=== PATIENT | female | born 1950 | race Caucasian/White ===

== ENCOUNTER → 2016-08-07 | Outpatient (CLI) | payer MEDICARE, OTHER | LOC: WI 13:03 | PROVIDERS: ATTEND Surgery | DX: Z12.31 Encounter for screening mammogram for malignant neoplasm of breast (principal); N63 Unspecified lump in breast | CPT/HCPCS: 77067; G0202 ==

== ENCOUNTER → 2018-03-05 | Outpatient (CLI) | payer MEDICARE, OTHER ==
--- NOTE | 2018-03-05 11:25 | WOMENS IMAGING REPORT ---
EXAM DESCRIPTION: 3D SCREENING MAMMO BILAT COMPLETED DATE/TIME: 03/05/2018 11:00 am REASON FOR STUDY: ROUTINE BILATERAL SCREENING;Z12.31 Z12.31 ENCNTR SCREEN MAMMOGRAM FOR MALIGNANT N EOPLASM OF SCAR COMPARISON: Mammograms 2015, 2016 TECHNIQUE: Standard craniocaudal and mediolateral oblique views of each breast recorded using digita l acquisition and breast tomosynthesis. LIMITATIONS: None. FINDINGS: No masses, calcifications or architectural distortion. No areas of suspicion. Read with the assistance of CAD. .[facility] - R2 Cenova Version 1.3 .[facility] - R2 Cenova Version 1.3 .[facility] - R2 Cenova Version 2.[address] - R2 Cenova Version 2.4 .[facility] - R2 [employer] Version 9.2 IMPRESSION: NORMAL MAMMOGRAM. BIRADS 1. BREAST DENSITY: b. There are scattered areas of fibroglandular density. BIRAD: 1 NEGATIVE RECOMMENDATION: ROUTINE SCREENING Please continue yearly bilateral screening tomosynthesis in February 2019 COMMENT: The patient has been notified of the results by letter per SA requirements. Additional no tification policies are in place for contacting patient with suspicious or incomplete findings. Quality ID #[id number]: The [employer] recommends an annual screening mammogram for women aged 40 years or over. This facility utilizes a reminder system to ensure that all patients receive reminder letters, and/or direct phone calls for appointments. This includes reminders for routine scr eening mammograms, diagnostic mammograms, or other Breast Imaging Interventions when appropriate. Th is patient will be placed in the appropriate reminder system. The [employer] (ACR) has developed recommendations for screening MRI of the breast s in certain patient populations, to be used in conjunction with mammography. Breast MRI surveillanc e may be appropriate for women with more than 20% lifetime risk of developing breast cancer as deter mined by genetic testing, significant family history of the disease, or history of mantle radiation f or Hodgkins Disease. ACR Practice Guidelines 2008. DBT Technology DBT is a type of tomographic mammography. With conventional mammography, overlapping breast tissue ma y make lesions difficult to detect, even with good compression. DBT uses an x-ray tube that rotates a round the breast, taking images at different angles. These images are then combined to create thin sl ices of the breast that the radiologist can view as a 3D reconstruction. The 5k Fans unit can perform full-field digital mammograms (2D imaging); or DBT (3D imaging); or both, in a combination mode that quickly performs both the mammogram and the tomosynthesis scan while the breast is still compressed. PQRS 6045F: Fluoroscopic imaging is not utilized for breast tomosynthesis. TECHNICAL DOCUMENTATION: FINDING NUMBER: (1) ASSESSMENT: (1) JOB ID: [id number] [employer]- All Rights Reserved Reading location - IP/workstation name: [email or web address]
== END ==
LOC: WI 11:19
PROVIDERS: ATTEND Surgery
DX: Z12.31 Encounter for screening mammogram for malignant neoplasm of breast (principal)
CPT/HCPCS: 77063; 77067

== ENCOUNTER 2020-01-06 17:01 | Emergency (ER) | payer MEDICARE, OTHER ==
--- NOTE | 2020-01-06 18:43 | ER Document Report ---
HPI - HPI Patient complains to provider of: Back pain Time Seen by Provider: 01/06/20 18:37 Pain Level: 1 Context: 69-year-old female past medical history significant for arthritis presents to the emergency room complaining of some mid to low back pain for the past 3 days. Denies any trauma or injury. No nausea, no vomiting. Does complain of some urinary frequency. States has been taking Tylenol with some relief. No previous back issues. Past Medical History - Social History Smoking Status: Never Smoker Frequency of alcohol use: None Family History: Reviewed & Not Pertinent - Past Medical History Cardiac Medical History: Denies: Hx Coronary Artery Disease, Hx Heart Attack, Hx Hypertension Pulmonary Medical History: Denies: Hx Asthma, Hx Bronchitis, Hx COPD, Hx Pneumonia Neurological Medical History: Denies: Hx Cerebrovascular Accident, Hx Seizures Musculoskeletal Medical History: Reports Hx Arthritis - POSSIBLE Past Surgical History: Denies: Hx Hysterectomy - Immunizations Hx Diphtheria, Pertussis, Tetanus Vaccination: Yes Vertical Provider Document - CONSTITUTIONAL Agree With Documented VS: Yes Exam Limitations: No Limitations Notes: VITAL SIGNS: Within normal limits. GENERAL: Mild acute distress, non-toxic appearance. HEAD: Normal with no signs of head trauma. EYES: PERRLA, EOMI, conjunctiva normal, no discharge. EARS: Hearing grossly intact. NOSE: Normal. THROAT: Oropharynx is normal. NECK: Normal range of motion, no tenderness, supple, no lymphadenopathy, No adenopathy, no JVD. CHEST: Clear breath sounds bilaterally. No wheezes, rales, or rhonchi. CARDIAC: Regular rate and rhythm. S1 and S2, without murmurs, gallops, or rubs. VASCULAR: No Edema. Peripheral pulses normal and equal in all extremities. ABDOMEN: Normal and soft with no tenderness, no masses or pulsatile masses. No organomegaly. Positive bowel sounds x4. No CVA tenderness noted bilaterally. GASTROINTESTINAL: Bowel sounds normal GENITOURINARY: Normal, No tenderness LYMPATHTIC: No lymphadenopathy noted. MUSCULOSKELETAL: Good range of motion of all major joints. Extremities without clubbing, cyanosis or edema. Noted to palpation over the thoracic and lumbar spine. No CVA tenderness noted bilaterally. NEUROLOGICAL: Alert and oriented x 3. No focal sensory or strength deficits. Speech normal. Follows commands appropriately. PSYCHIATRIC: Normal Affect, judgement and mood. SKIN: Normal appearance with no rashes or lesions. - INFECTION CONTROL TRAVEL OUTSIDE OF THE [place] IN LAST 30 DAYS: No Course - Re-evaluation Re-evalutation: 01/06/20 19:42 Went to evaluate patient and give her her urine results she informed provider that she has been having some intermittent chest pain patient states that she describes it as pressure has been off and on for the past 3 days. Did not initially tell provider about her chest pain. Cardiac evaluation was ordered. - Vital Signs Vital signs: Temp Pulse Resp BP Pulse Ox 98.6 F 73 14 169/88 H 100 01/06/20 17:06 01/06/20 17:06 01/06/20 17:06 01/06/20 17:06 01/06/20 17:06 Discharge - Discharge Clinical Impression: Urinary frequency Condition: Stable Disposition: HOME, SELF-CARE Referrals: KIRSTEN WRIGHT PA [Primary Care Provider] - Follow up as needed
[2020-01-06 19:12] LABS: APPEARANCE,URINE CLEAR; BILIRUBIN,URINE NEGATIVE (NEGATIVE); COLOR,URINE STRAW; GLUCOSE, URINE NEGATIVE (NEGATIVE); KETONES,URINE NEGATIVE (NEGATIVE); LEUKOCYTE ESTERASE,URINE NEGATIVE (NEGATIVE); NITRITE,URINE NEGATIVE (NEGATIVE); PROTEIN,URINE NEGATIVE (NEGATIVE); URINE SPECIFIC GRAVITY 1.006; UROBILINOGEN,URINE NEGATIVE mg/dL (<2.0)
--- NOTE | 2020-01-06 19:41 | ER Document Report ---
ED Medical Screen (RME) - General Chief Complaint: Low Back Pain Stated Complaint: LOWER BACK PAIN Time Seen by Provider: 01/06/20 18:37 Primary Care Provider: KIRSTEN WRIGHT PA [Primary Care Provider] - Follow up as needed Mode of Arrival: Ambulatory Information source: Patient Notes: HPI; 69-year-old female presents to the emergency room complaining of some mid upper to mid low back pain that started 2 days ago. Complains of some urinary frequency. Initially denied any chest pain, shortness of breath, no difficulty breathing. Is now complaining of some intermittent chest pain for the past 2 days. Describes it as pressure. Took Tylenol with some relief. PE: Alert and oriented x3. Lungs: Clear to auscultation without rales, rhonchi, wheezes.: Regular rate rhythm without murmurs, rubs, gallops. I have greeted and performed a rapid initial assessment of this patient. A comprehensive ED assessment and evaluation of the patient, analysis of test r esults and completion of the medical decision making process will be conducted by additional ED providers. I have specifically instructed the patient or family members with the patient to immediately return to any nursing staff should anything change in the patient's condition or with their chief complaint. Patient was initially seen for possible UTI went to discuss urine results with patient when she asked to be seen for her intermittent chest pain that she did not initially tell me about. Cardiac evaluation has been ordered. TRAVEL OUTSIDE OF THE [place] IN LAST 30 DAYS: No - Related Data Allergies/Adverse Reactions: No Known Allergies Allergy (Verified 10/03/15 07:35) Past Medical History - Past Medical History Cardiac Medical History: Denies: Hx Coronary Artery Disease, Hx Heart Attack, Hx Hypertension Pulmonary Medical History: Denies: Hx Asthma, Hx Bronchitis, Hx COPD, Hx Pneumonia Neurological Medical History: Denies: Hx Cerebrovascular Accident, Hx Seizures Musculoskeltal Medical History: Reports Hx Arthritis - POSSIBLE Past Surgical History: Denies: Hx Hysterectomy - Immunizations Hx Diphtheria, Pertussis, Tetanus Vaccination: Yes Physical Exam - Vital signs Vitals: Temp Pulse Resp BP Pulse Ox 98.6 F 73 14 169/88 H 100 01/06/20 17:06 01/06/20 17:06 01/06/20 17:06 01/06/20 17:06 01/06/20 17:06 Course - Vital Signs Vital signs: Temp Pulse Resp BP Pulse Ox 98.6 F 73 14 169/88 H 100 01/06/20 17:06 01/06/20 17:06 01/06/20 17:06 01/06/20 17:06 01/06/20 17:06 - Laboratory Laboratory results interpreted by me: 01/06/20 18:45 Urine Ascorbic Acid 40 H Doctor's Discharge - Discharge Referrals: KIRSTEN WRIGHT PA [Primary Care Provider] - Follow up as needed
[2020-01-06 19:57] LABS: ABSOLUTE LYMPHOCYTES (AUTO) 2.3 10^3/uL (0.5-4.7); ABSOLUTE MONOCYTES (AUTO) 0.8 10^3/uL (0.1-1.4); ABSOLUTE NEUT (AUTO) 4.8 10^3/uL (1.7-8.2); BASOPHILS % (AUTO) 0.6 % (0-2); EOSINOPHILS % (AUTO) 0.2 % (0-6); HEMATOCRIT 41.9 % (36.0-47.0); HEMOGLOBIN 14.5 g/dL (12.0-15.5); MEAN CORPUSCULAR HGB CONC 34.6 g/dL (32.0-36.0); MEAN CORPUSCULAR VOLUME 90 fl (80-97); MONOCYTES % (AUTO) 10.1 % (3-13); PLATELET COUNT 255 10^3/uL (150-450); RED BLOOD COUNT 4.68 10^6/uL (3.72-5.28); RED CELL DISTRIBUTION WIDTH 12.7 % (11.5-14.0); SEGMENTED NEUTROPHILS % (AUTO) 60.1 % (42-78); TOTAL CELLS COUNTED % (AUTO) 100 %
[2020-01-06 20:19] LABS: ALBUMIN 4.8 g/dL (3.5-5.0); ALKALINE PHOSPHATASE 119 U/L (38-126); ANION GAP 8 (5-19); ASPARTATE AMINO TRANSFERASE 26 U/L (14-36); BILIRUBIN,TOTAL 0.6 mg/dL (0.2-1.3); BLOOD UREA NITROGEN 8 mg/dL (7-20); CALCIUM 10.5 mg/dL (8.4-10.2); CARBON DIOXIDE 31 mmol/L (22-30); CHLORIDE 102 mmol/L (98-107); CREATINE KINASE 39 U/L (30-135); GLUCOSE 113 mg/dL (75-110); POTASSIUM 4.3 mmol/L (3.6-5.0); TOTAL PROTEIN 7.9 g/dL (6.3-8.2)
[2020-01-06 20:37] LABS: CREATINE KINASE MB 0.78 ng/mL (<4.55); TROPONIN I < 0.012 ng/mL
--- NOTE | 2020-01-06 22:29 | RADIOLOGY REPORT (SQ) ---
EXAM DESCRIPTION: XR CHEST 2 VIEWS COMPLETED DATE/TME: 01/06/2020 21:35 CLINICAL HISTORY: 69 years Female chest pain COMPARISON: None. FINDINGS: The cardiomediastinal silhouette appears unremarkable. No consolidating infiltrates or pleural effusions. No pneumothorax. IMPRESSION: No acute abnormality is identified.
--- NOTE | 2020-01-06 23:51 | ER Document Report ---
ED General - General Chief Complaint: Chest Pain Stated Complaint: LOWER BACK PAIN Time Seen by Provider: 01/06/20 18:37 Primary Care Provider: KIRSTEN WRIGHT PA [Primary Care Provider] - Follow up as needed Mode of Arrival: Ambulatory TRAVEL OUTSIDE OF THE [place] IN LAST 30 DAYS: No - HPI Notes: Patient is a 69-year-old female who presents originally to the emergency department for evaluation of mid back pain. She states this been going on for the last 3 days. She states she noticed that when she got up to go to the bathroom from bed. She described it as a dull ache. She states that the pain has been significantly relieved with Tylenol. Is worsened by position and movement. She describes it as an ache. She denies any fevers or chills. No nausea or vomiting. She is eating and drinking normally. No urinary symptoms. Normal bowel movements. On further questioning the patient also admitted to a chest heaviness. She states that over the last 6 months she has been experiencing this intermittently. It happens primarily when she wakes in the morning. She denies any associated symptoms. The heaviness is across her diffuse chest, does not radiate. She has no associated symptoms with the chest tightness. She states she is always just attributed it to stress. She has had significant family stressors as of late. - Related Data Allergies/Adverse Reactions: No Known Allergies Allergy (Verified 10/03/15 07:35) Home Medications: Multivitamins Past Medical History - General Information source: Patient - Social History Smoking Status: Never Smoker Frequency of alcohol use: None Family History: Reviewed & Not Pertinent, CAD - Past Medical History Cardiac Medical History: Denies: Hx Coronary Artery Disease, Hx Heart Attack, Hx Hypertension Pulmonary Medical History: Denies: Hx Asthma, Hx Bronchitis, Hx COPD, Hx Pneumonia Neurological Medical History: Denies: Hx Cerebrovascular Accident, Hx Seizures Musculoskeletal Medical History: Reports Hx Arthritis - POSSIBLE Past Surgical History: Denies: Hx Hysterectomy - Immunizations Hx Diphtheria, Pertussis, Tetanus Vaccination: Yes Review of Systems - Review of Systems Constitutional: No symptoms reported EENT: No symptoms reported Cardiovascular: See HPI Respiratory: No symptoms reported Gastrointestinal: No symptoms reported Genitourinary: No symptoms reported Musculoskeletal: See HPI Skin: No symptoms reported Neurological/Psychological: No symptoms reported Physical Exam - Vital signs Vitals: Temp Pulse Resp BP Pulse Ox 98.6 F 73 14 169/88 H 100 01/06/20 17:06 01/06/20 17:06 01/06/20 17:06 01/06/20 17:06 01/06/20 17:06 - Notes Notes: Vital signs reviewed, please refer to chart. Head is normocephalic, atraumatic. Pupils equal round, reactive to light. Neck is supple without meningismus. Heart is regular rate and rhythm. Lungs are clear to auscultation bilaterally. Abdomen is soft, nontender, normoactive bowel sounds throughout. Extremities without cyanosis, clubbing. Posterior calves are nontender. Peripheral pulses are equal. Skin is warm and dry. Patient is awake, alert, neurological exam is nonfocal. Examination of the spine yields no midline tenderness or step-off. No real paraspinal musculature tenderness is appreciated. Course - Re-evaluation Re-evalutation: 01/06/20 23:57 Patient presents to the emergency department for evaluation. She was initially evaluated with a urine, but then complained of some chest tightness, so cardiac evaluation was added. The patient has not had chest tightness since Friday. This is been 4 days ago. She has only age is a risk factor for coronary artery disease. We discussed this at length, certainly her chest pain could be secondary to stress. I encouraged her to follow-up with her primary care provider, make sure all of her risks are being addressed ideally, and perhaps discuss a stress test. She was amenable to this plan. She was offered muscle relaxers for her back pain, states that she does not wish to pursue this as an option at this time. She is to follow-up with primary care next week, return to the ER with worsening or new concerning symptoms of any sort. - Vital Signs Vital signs: Temp Pulse Resp BP Pulse Ox 98.6 F 73 14 169/88 H 100 01/06/20 17:06 01/06/20 17:06 01/06/20 17:06 01/06/20 17:06 01/06/20 17:06 - Laboratory Result Diagrams: 01/06/20 19:50 01/06/20 19:50 Laboratory results interpreted by me: 01/06/20 01/06/20 18:45 19:50 Carbon Dioxide 31 H Glucose 113 H Calcium 10.5 H Urine Ascorbic Acid 40 H - Diagnostic Test Radiology reviewed: Reports reviewed Radiology results interpreted by me: 01/06/20 23:58 Chest X-Ray 01/06/20 21:35 IMPRESSION: No acute abnormality is identified. Discharge - Discharge Clinical Impression: Thoracic back pain Qualifiers: Chronicity: acute Back pain laterality: bilateral Qualified Code(s): M54.6 - Pain in thoracic spine Chest pain Qualifiers: Chest pain type: unspecified Qualified Code(s): R07.9 - Chest pain, unspecified Condition: Stable Disposition: HOME, SELF-CARE Instructions: Chest Pain of Unclear Cause ([facility]), Upper Back Strain ([facility]) Additional Instructions: Moist heat to the painful area in your back. Continue the Tylenol as needed for pain. If your pain persists or worsens, discuss a possible muscle relaxer with your primary care provider. No significant abnormality was found in your work- up today, and no clear cause was found for your chest pain. Please discuss this with your primary care provider as well, discussed the possibility of a stress test for further evaluation. If you develop worsening or new concerning symptoms of any sort, please return immediately to the ER for further evaluation. Referrals: KIRSTEN WRIGHT PA [Primary Care Provider] - Follow up as needed
[2020-01-07 00:05] VITALS: BP 137/61
--- NOTE | 2020-01-07 10:09 | EKG REPORT ---
SEVERITY:- ABNORMAL ECG - SINUS RHYTHM NONSPECIFIC T ABNORMALITIES, DIFFUSE LEADS : Confirmed by: Stephanie Cheung 07-Jan-2020 10:08:27
== END 2020-01-07 00:05 | disposition home or self-care (01) ==
LOC: ER 17:01
DX: R07.9 Chest pain, unspecified (principal); M54.6 Pain in thoracic spine; M54.5 Low back pain; M54.9 Dorsalgia, unspecified
CPT/HCPCS: 36415; 71046; 80053; 81001; 82550; 82553; 84484; 85025; 93005; 93010; 99285